=== PATIENT | female | born 1975 ===

== ENCOUNTER 2025-01-15 08:56 | Outpatient (AMB) | payer OTHER, SELFPAY ==
--- NOTE | 2025-01-15 09:01 | MHC.OFFVIS ---
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 The pain has been persistent and radiates to both legs posteriorly, accompanied by numbness and tingling sensations. The patient reports that all movements, including walking, sitting, prolonged driving, bending, and lifting, exacerbate the pain. The patient has a history of receiving treatment at [facility] and has undergone physical therapy in [place] a year ago without relief. She has also received L5-S1 epidural steroid injections at [facility], which provided minimal relief. The patient has been informed that surgery was recommended, but she is reluctant to pursue this option. An MRI conducted in October 2022 revealed degenerative changes in the lumbar spine, most pronounced at L5-S1, with a diffuse disc bulge and severe bilateral neuroforaminal narrowing. The MRI also showed facet arthropathy at the same level, but no significant canal stenosis. The patient reports worsening pain since 2022 and experiences weakness in her legs. The patient has a history of anxiety, for which she is seeing a Psychiatrist. She also suffers from migraines and is currently taking Mounjaro for diabetes and weight loss. - Onset: Chronic, persistent pain - Quality: Constant aching, throbbing, shooting, numbness, tingling, sharp, heavy, sore, and stabbing pain - Location: Lower back, radiating to both legs and buttocks - Exacerbating factors: Walking, sitting, prolonged driving, bending, lifting - Relieving factors: Percocet provides relief, but difficult to obtain - Interference: Affects all activities, including work and sleep - Affect: Pain significantly impacts mood and psychological wellbeing, contributing to anxiety. - Analgesia: Percocet provides relief, but is difficult to obtain; patient has tried muscle relaxants and gabapentin without success. - Adverse Effects: No specific adverse effects from pain medications were discussed. - Activities of Daily Living: Pain interferes with daily activities, including work and sleep. - Aberrant Drug Related Behaviors: No aberrant behaviors were discussed. Oswestry Low Back Pain Disability Score=38 [facility] Medical History (Updated 01/15/25 @ 09:38 by LISETH Davis) Palpitation Vitamin D deficiency Lumbar radiculitis Hypertension Excessive and frequent menstruation Chronic headache Chondromalacia of patella Chronic insomnia Chronic migraine without aura without status migrainosus, not intractable Diabetes type 2, controlled Hyperlipidemia Anxiety Surgical History (Updated 01/15/25 @ 09:21 by Manuela Greer) H/O tubal ligation Hx of tonsillectomy History of partial hysterectomy Hx of laparoscopic gastric banding History of ear surgery History of endometrial ablation Social History Alcohol intake: current Patient Tobacco Use Status: Never used Tobacco Review of Systems Const Details: - Musculoskeletal: Reports chronic low back pain radiating to legs, worsened by movement. - Neurological: Reports tingling in legs and weakness. - Psychiatric: Reports anxiety and elevated stress levels - Endocrine: Reports diabetes, managed with medication. - Sleep: Reports difficulty sleeping due to pain. All systems reviewed & are unremarkable except as noted in HPI and below Physical Exam Vital Signs: Last Vital Signs Pulse 92 01/15/25 09:08 BP 123/90 H 01/15/25 09:08 Pulse Ox 100 01/15/25 09:08 Oxygen Delivery Method Room Air 01/15/25 09:08 BMI result Body Mass Index 25.6 General: Appears afebrile. Alert and oriented. Mood and affect appropriate. Follows and participates in conversation appropriately. Respiratory effort is unlabored. No cough. Able to transition from sit to stand unassisted. Ambulates with bilaterally normal heel strike and toe off, reports RLE and back pain increase with heel/toe standing. General: Yes no CVA tenderness Back/Spine/Pelvis Other: Limited lumbar ROM due to pain. Lumbar flexion and extension reproduces moderate to severe pain. Normal gait, no limping. Demonstrates 5/5 strength of quadriceps bilaterally as well as flexion/dorsiflexion of bilateral feet against resistance. 2+ pedal pulses bilaterally. Straight leg rise with dorsiflexion positive bilaterally, R>L. +2 patellar and achilles reflexes bilaterally. Facet loading test positive bilaterally. Maggy sign, Jatin?s and Stinchfield tests are negative bilaterally. No groin pain with I/E hip rotations. Valsalva maneuver is positive. Back: no CVA tenderness Cervical Spine: cervical ROM normal, cervical muscular tenderness, pain with cervical ROM and No Cervical spine tenderness Thoracic/Lumbar Spine: thoracic and lumbar spine normal to inspection, No Thoracic/lumbar spine scar(s), Lasegue's sign positive bilateral and diffuse, pain with thoraco-lumbar ROM, paraspinal muscle tenderness, thoraco-lumbar ROM limited, No thoracic spinal tenderness and lumbar spinal tenderness (L4-S1) Sacroiliac joints: bilaterally tender to palpation Extrem General: Yes capillary refill normal, Yes no clubbing, cyanosis or edema and Yes no calf tenderness Results Reviewed Results Reviewed: Assessment & Plan Assessment & Plan (1) Lumbar degenerative disc disease: Code(s): M51.36 - Other intervertebral disc degeneration, lumbar region Category: Medical (2) Chronic low back pain with bilateral sciatica: Code(s): M54.41 - Lumbago with sciatica, right side; M54.42 - Lumbago with sciatica, left side; G89.29 - Other chronic pain Category: Medical (3) Chronic pain syndrome: Code(s): G89.4 - Chronic pain syndrome Category: Medical (4) Lumbar spondylosis: Code(s): M47.816 - Spondylosis without myelopathy or radiculopathy, lumbar region Category: Medical (5) Bilateral neuropathy of upper extremities: Code(s): G56.93 - Unspecified mononeuropathy of bilateral upper limbs Category: Medical Plan The plan includes updating the MRI to assess for neural integrity and compression and for any changes since the last imaging in 2022. Given ongoing pareshesia in both arms, we will proceed with EMG and NVC study to rule out carpal tunnel syndrome vs cervical radiculopathy. Discussed interventional pain management options including neuromodulation with ITDD pain pump and spinal cord stimulator, with the requirement of a psychological evaluation prior to any trial and permanent implantation. The patient is encouraged to consider these options and is provided with informational pamphlets to study further. Patient was informed that our office does not offer chronic opioid therapy at this time. All questions and concerns have been answered and patient agreed with the treatment plan. Follow up for MRI results and sooner as needed. Patient was informed and verbally consented to the use of an ambient scribe for clinic note documentation during this visit. Orders: Orders MR lumbar spine wo con Today G89.29 - Other chronic pain, G89.4 - Chronic pain syndrome, M47.816 - Spondylosis without myelopathy or radiculopathy, lumbar region, M51.36 - Other intervertebral disc degeneration, lumbar region, M54.41 - Lumbago with sciatica, right side, M54.42 - Lumbago with sciatica, left side NE electromyogram (EMG) Today G56.93 - Unspecified mononeuropathy of bilateral upper limbs NE nerve conduction velocity Today G56.93 - Unspecified mononeuropathy of bilateral upper limbs Coding Level of Care Code New Pt Level 4 (46037) Diagnoses Lumbar degenerative disc disease M51.36 Chronic low back pain with bilateral sciatica M54.41; M54.42; G89.29 Chronic pain syndrome G89.4 Lumbar spondylosis M47.816 Bilateral neuropathy of upper extremities G56.93
[2025-01-15 09:08] VITALS: BP 123/90; PULSE 92; O2SAT 100; BMI 25.6
--- OUTSIDE RECORDS SUMMARY | 2025-01-15 09:41 | XMS_ITS | Patient Health Record ---
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 Primary Care Provider Carla Law Unavailable [phone] Allergies Allergen (clinical drug ingredient) Drug/Non Drug Allergy documented on EMR Reaction Allergy Type Onset Date Status PENICILLIN Unknown Drug Allergy Active Reason For Referral No Information Medications Medication SIG (Take, Route, Frequency, Duration) Notes Start Date End Date Status Doxycycline Hyclate 100 MG 1 capsule Ora lly every 12 hrs; Duration: 7 days 10/17/2015 Active Topiramate 25 MG 1 tablet Orally Once a day Active Percocet 5-325 MG 1 tablet as needed O rally every 6 hrs PRN; Duration: 7 days 10/17/2015 Active Problems Problem Type SNOMED Code ICD Code Onset Dates Problem Status W/U Status Risk Notes Problem Excessive and frequent menstruation (518484477) Excessive or frequent menstruation (626.2) Active confirmed Major Problem Metrorrhagia (61965685) Metrorrhagia (626.6) Active confirmed Major Problem Surgical follow-up (007779811) Surgery follow-up examination (V67.0) Active confirmed Diag Plan Of Treatment Pending Test Test Name Order Date COMPLETE URINALYSIS 10/17/2015 Insurance Providers Payer Name Payer Address Payer Phone Subscriber Number Group Number Insured Name Patient Relationship to Insured Coverage Start Date Coverage End Date [facility] [address] [place] [address] [phone] [id number] ARIES TYSON Self - patient is the insured Medical (General) History Medical History History ICD Code Excessive and frequent menstruation with irregular cycle N92.1 Surgical History Surgery Date(Month/Year) TONSILLECTOMY EAR TUBES - as child BILATERAL EXCISION OF CYSTS, THIGH HSONO & EMB 2012 [facility] ABLATAION 2nd A[address] DR. HUFF 06/2015 Hospitalization History Reason Date(Month/Year) 2 Vaginal Deliveries See Surgical HX
--- OUTSIDE RECORDS SUMMARY | 2025-01-15 09:42 | XMS_ITS | Clinical Summary ---
Author Organization 175 [facility] Address [address] [place] [address] Phone Care Team Providers Care Edge Burnisher Name Role Phone Morteza Calix Primary Care Provider [phone] Allergies Active Allergy Reactions Criticality Noted Date Comments Hydrocodone-Acetaminop hen Headache 04/12/2019 Super bad migraines Penicillins Hives,GI intolerance,Unknown 01/26/2005 vomiting Other Reaction(s): vomiting,hives Medications aspirin-acetam inophen-caffei ne (EXCEDRIN MIGRAINE) 250-250-65 mg per tablet Take 1 tablet by mouth every 6 (six) hours if needed. Active FreeStyle Lite Meter monitoring kit USE DIRECTED ONCE 02/29/20 23 Active metFORMIN XR (GLUCOPHAGE-XR ) 500 mg 24 hr tablet Take 1 tablet (500 mg total) by mouth 1 (one) time each day. 90 tablet 3 04/04/19 25 Active blood sugar diagnostic (FreeStyle Lite Strips) test strip Use as instructed 100 each 3 04/04/19 25 Active amLODIPine (NORVASC) 10 mg tablet Take 1 tablet (10 mg total) by mouth 1 (one) time each day. 90 tablet 3 04/04/19 25 Active atorvastatin (LIPITOR) 20 mg tablet Take 1 tablet (20 mg total) by mouth 1 (one) time each day. 90 tablet 3 04/04/19 25 Active hydroCHLOROthi azide (HYDRODIURIL) 25 mg tablet Take 1 tablet (25 mg total) by mouth 1 (one) time each day. 90 tablet 3 04/04/19 25 Active losartan (COZAAR) 25 mg tablet Take 1 tablet (25 mg total) by mouth 1 (one) time each day. 90 tablet 3 04/04/19 25 Active metoprolol succinate (TOPROL-XL) 50 mg 24 hr tablet Take 1 tablet (50 mg total) by mouth 1 (one) time each day. 90 tablet 3 04/04/19 25 Active topiramate (TOPAMAX) 50 mg tablet Take 1 tablet (50 mg total) by mouth 2 (two) times a day. 180 tablet 3 04/04/19 25 Active FreeStyle Lancets 28 gauge lancets USE 1 LANCET DAILY 02/28/20 24 Active Nystop 100,000 unit/gram powder APPLY TO AREA OF RASH TWICE DAILY 06/16/19 24 Active gabapentin (NEURONTIN) 100 mg capsule Take 1 capsule (100 mg total) by mouth 3 (three) times a day. 270 capsule 1 06/22/19 25 Active rizatriptan (MAXALT) 10 mg tablet Take 1 Tablet by mouth as needed for Migraine. May repeat in 2 hours if needed 9 tablet 11 07/06/19 25 Active gabapentin (NEURONTIN) 800 mg tablet TAKE 1 TABLET BY MOUTH THREE TIMES A DAY 270 tablet 1 08/08/19 25 Active zolpidem (AMBIEN) 5 mg tablet TAKE 1 TABLET BY MOUTH AT BEDTIME NEEDED FOR SLEEP. MAX DAILY AMOUNT: 5 MG 28 tablet 12/22/19 25 Active tirzepatide (Mounjaro) 12.5 mg/0.5 mL injectionIndic ations:Over weight Inject 0.5 mL (12.5 mg total) under the skin every 7 (seven) days. 2 mL 3 01/09/20 25 026 Active cyclobenzaprin e (FLEXERIL) 10 mg tablet Take 1 tablet (10 mg total) by mouth 3 (three) times a day if needed for muscle spasms. 90 tablet 5 06/29/19 25 025 Discontinued(Th erapy completed) tirzepatide (Mounjaro) 12.5 mg/0.5 mL injectionIndic ations:Over weight Inject 0.5 mL (12.5 mg total) under the skin every 7 (seven) days. 2 mL 3 10/31/19 25 025 Discontinued(Re order) zolpidem (AMBIEN) 5 mg tablet Take 1 tablet (5 mg total) by mouth at bedtime as needed for sleep. Max Daily Amount: 5 mg 28 tablet 11/14/19 25 025 Discontinued oxyCODONE-acet aminophen (Percocet) 10-325 mg per tablet Take 1 tablet by mouth every 8 (eight) hours if needed for severe pain for up to 28 days. 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 Overview (02/07/2024): + swab 03/2017 Osteoarthritis of cervical spine 03/23/2017 Chronic migraine w/o aura w/ o status migrainosus, not intractable 03/23/2017 Chronic headaches 06/21/2013 Vitamin D deficiency 05/31/2012 Chondromalacia of patella 11/09/2006 Encounters Date Type Department Care Team Description 01/08/2025 1:45 PM EDT Office Visit Bariatric Surgery [address] [place] [address] Erasmo Woodard MD New onset type 2 diabetes mellitus (CMS/HCC V24, CMS/HCC V28) (Primary Dx); Over weight 01/04/2025 1:15 PM EDT Office Visit Adult Medicine [address] [phone] Cara Webb, PA Primary hypertension (Primary Dx); Hyperlipidemia, unspecified hyperlipidemia type; Type 2 diabetes mellitus without complication, without long-term current use of insulin ([facility] V24, [facility] V28); Chronic migraine without aura without status migrainosus, not intractable; Chronic bilateral low back pain with bilateral sciatica; Primary insomnia 01/04/2025 Telephone Adult Medicine [address] [phone] Morteza Calix PA 12/20/2024 Telephone Adult Medicine [address] [phone] Cara Webb PA 11/13/2024 Telephone Adult Medicine [address] [phone] Kemi Negron MA from Last 3 Months Immunizations Immunization Administration Dates Next Due H1N1 Inj Preservative Free 03/28/2009 Influenza Quadravalent, MDCK , 0.5ml, preservative free (Flucelvax) 6mo and older 01/12/2022 Influenza Quadrivalent, 0.5m l, preservative free (Fluarix; FluLaval; Fluzone) ages 6mo and older (Afluria) 3yo and older 01/19/2023 Influenza trivalent, 0.5mL, preservative free (Fluarix; FluLaval; Fluzone) ages 6mo and older (Afluria) 3 years and older 01/06/2024,12/10/2014,03/28/2009 Influenza trivalent, with pr eservative (Fluzone; Afluria) 6mo and older 12/30/2016 Influenza, Unspecified 12/13/2022 Pneumococcal conjugate 20 va lent (Prevnar 20, PCV 20) 2mo and older 07/05/2024 Pneumococcal polysaccharide 23 valent (Pneumovax 23) 2yo and older 12/30/2016 Td Tetanus diptheria (Tdvax) 7yo and older 05/21 Td, Unspecified 05/22/2003 Tdap Tetanus diptheria acell ular pertussis (Boostrix; Adacel) 7yo and older 10/26/2019,06/21/2013 Surgical History Surgery Date Site/Laterality Comments TUBAL LIGATION PROCEDURE: HISTORICAL TUBAL LIGATION TONSILLECTOMY PROCEDURE: HISTORICAL TONSILLECTOMY OTHER SURGICAL HISTORY PROCEDURE: HISTORICAL EAR SURGERY; COMMENT: ear tubes OTHER SURGICAL HISTORY PROCEDURE: ---- OTHER ----; COMMENT: lap band 2007 aprox OTHER SURGICAL HISTORY PROCEDURE: HISTORICAL UNSPECIFIED SURGERY; COMMENT: cyst-right thigh removal ENDOMETRIAL ABLATION 2012 PROCEDURE: ND ENDOMETRIAL ABLTJ THERMAL W/O HYSTEROSCOPIC GUID PARTIAL HYSTERECTOMY PROCEDURE: ND SUPRACERVICAL ABDL HYSTER W/WO RMVL TUBE OVARY Medical History Medical History Date Comments Morbid obesity (CMS/[facility] V24, CMS/[facility] V28) 007 DX:Morbid obesity ([facility]) Chondromalacia of patella 11/09/2006 DX:Cho ndromalacia of patella Migraines DX:Migraines Hyperlipidemia Hypertension Family History Medical History Relation Name Comments Coronary artery disease Maternal Grandfather Heart attack Mother htn, Melanoma Mother's side 1 aunt in her 30's Coronary artery disease Mother's side 2 a unt, Coronary artery disease Other 1st cousin Coronary artery disease Paternal Grandfather [place] Other: htn Sister Breast cancer Neg Hx Colon cancer Neg Hx Ovarian cancer Neg Hx Relation Name Status Comments Father Alive htn Maternal Grandfather Mother Alive gerd, htn, [place], sleep apnea Mother's side 1 Mother's side 2 Other Paternal Grandfather Sister Social History Tobacco Use Types Packs/Day Years Used Date Smoking Tobacco: Never Smokeless Tobacco: Never Tobacco Cessation:Counseling Given: Not Answered Alcohol Use Standard Drinks/Week Comments Yes 0 (1 standard drink = 0.6 oz pur e alcohol) Housing Instability Answer Date Recorde d Are you worried that in the next 2 months you may not have stable housing? No 10/04/2024 Food Access & Nutrition Answer Date Rec orded Do you have access to a vari ety of food including fruits and vegetables? Yes 10/04/2024 Access to Healthcare Answer Date Record ed Within the last 3 months, ho w many times did you visit the emergency department for your medical care? 0 10/04/2024 Health Literacy Answer Date Recorded How often do you need to hav e someone help you when you read instructions, pamphlets, or other written material from your doctor or pharmacy? Never 10/04/2024 Caregiver: How often do you need to have someone help you when you read instructions, pamphlets, or other written material from your doctor or pharmacy? Not on file 10/04/2024 Financial Risk Answer Date Recorded How hard is it for you to pa y for the very basics like food, housing, medical care, and air conditioning / heating? Not very hard 10/04/2024 Transportation Answer Date Recorded Has the lack of transportati on kept you from meetings, work, or from getting things needed for daily living? No Has the lack of transportati on kept you from medical appointments or from getting medications? No 10/04/2024 Social Isolation Answer Date Recorded How often do you feel lonely or isolated from th ose around you? Never 10/04/2024 Food Risk Answer Date Recorded Within the past 12 months we worried whether our food would run out before we got money to buy more. Never true 10/04/2024 Within the past 12 months th e food we bought just didn't last and we didn't have money to get more. Never true 10/04/2024 Dependent Care Answer Date Recorded Do you need help finding or paying for care for your loved ones. For example, early childhood education worker or elderly care for an older adult? No 10/04/2024 Education Answer Date Recorded Do you think completing more education or training, like finishing a GED, going to college, or learning a trade, would be helpful for you? No 10/04/2024 Employment and Income Answer Date Recor ded During the last four weeks, have you been actively looking for work? No 10/04/2024 Living Situation Answer Date Recorded What is your living situation? Unrecognized valu e 10/04/2024 Interpersonal Safety Answer Date Record ed Physical Abuse Unrecognized value 06/01/2024 Verbal Abuse Unrecognized value 06/01/2024 Comments No Sex and Gender Information Value Date Recorded Sex Assigned at Female 10/05/2023 8:36 AM EDT Legal Sex Female 2:08 AM EST Gender Identity Female 10/05/2023 8:36 AM EDT Sexual Orientation Straight 10/05/2023 8: 36 AM EDT Obstetrics History Last Filed Vital Signs Vital Sign Reading Time Taken Comments Blood Pressure 136/85 01/08/2025 2:12 PM EDT Pulse 90 01/08/2025 2:12 PM EDT Temperature 36.6 C (97.8 F) 01/08/2025 2:12 PM EDT Respiratory Rate 16 01/04/2025 1:17 PM EDT Oxygen Saturation 99% 01/04/2025 1:17 PM EDT Inhaled Oxygen Concentration - - Weight 61.2 kg (135 lb) 01/08/2025 2:12 PM EDT Height 152.4 cm (5') 01/08/2025 2:12 PM EDT Body Mass Index 26.37 01/08/2025 2:12 PM EDT Plan of Treatment Upcoming Encounters Date Type Department Care Team (Late st Contact Info) Description 04/09/2025 1:15 PM EST Office Visit Adult Medicine [facility] [address] [place] [phone] Cara Webb PA [address] [place] [address] 07/09/2025 2:15 PM EDT Office Visit Bariatric Surgery - [address] [place] [address] Erasmo Woodard MD [address] [place] [phone] Health Maintenance Due Date Last Done Comments Breast Cancer Screening 1975 Hepatitis B Vaccines (1 of 3 - 19+ 3-dose series) 1996 Cervical Cancer Screening: Pap Smear 11/16/2014 11/17/2011, 11/17/2011 COVID-19 Vaccine ( season) 2024 01/19/2023, 07/29/2020, 07/08/2020 Diabetes: Annual Retina Eye Exam 03/29/2025 03/29/2024 Diabetes: Blood Sugar Control Test (HGBA1C) 04/06/2025 10/04/2024, 05/14/2024, 09/13/2023, Additional history exists Diabetes: Annual Urine Albumin-Creatinine Ratio (uACR) 05/14/2025 05/14/2024, 04/14/2023 Diabetes: Annual GFR (Glomerular Filtration Rate) 05/14/2025 05/14/2024, 09/13/2023, 09/13/2023 Hypertension/CHF/CAD Annual BMP Blood Test 05/14/2025 05/14/2024, 09/13/2023, 09/13/2023 Influenza Vaccine (#1) 2025 , 01/19/2023, 12/13/2022, Additional history exists Postponed from 11/12/2024 (Patient Refused) Diabetes: Annual Foot Exam 10/04/2025 10/04/2024, Social Influencers of Health Screening 10/04/2025 10/04/2024 Cholesterol Screening (Lipid Panel) 05/14/2029 05/14/2024, 04/14/2023 DTaP,Tdap,and Td Vaccines (5 - Td or Tdap) 10/25/2029 10/26/2019, 06/21/2013, 05/22/2003, Additional history exists Colorectal Cancer Screening: Colonoscopy 06/01/2034 06/01/2024 RSV Immunization Adult Patients (1 - 1-dose 75+ series) 2052 HIV Screening Completed 03/25/2017 Hepatitis C Screening Completed 03/25/2017 Pneumococcal Vaccine: Pediatrics (0 to 5 Years) and At-Risk Patients (6 to 49 Years) Completed 07/05/2024, 12/30/2016 Depression Screening Completed 10/04/2024 HIB Vaccines Aged Out No longer eligi ble based on patient's age to complete this topic HPV Vaccines Aged Out No longer eligi ble based on patient's age to complete this topic Hepatitis A Vaccines Aged Out No long er eligible based on patient's age to complete this topic IPV Vaccines Aged Out No longer eligi ble based on patient's age to complete this topic MMR Vaccines Aged Out No longer eligi ble based on patient's age to complete this topic Meningococcal ACWY Vaccine Aged Out N o longer eligible based on patient's age to complete this topic Meningococcal B Vaccine Aged Out No l onger eligible based on patient's age to complete this topic RSV Immunization Patients Under 20 months Aged Out No longer eligible based on patient's age to complete this topic Varicella Vaccines Aged Out No longer eligible based on patient's age to complete this topic Procedures Procedure Name Priority Date/Time Associated Diagnosis Comments HEMOGLOBIN A1C Routine 10/04/2024 4:28 PM EDT Type 2 diabetes mellitus without complication, without long-term current use of insulin (CMS/HCC V24, CMS/HCC V28) COLONOSCOPY Routine 06/01/2024 8:56 AM EDT Colon cancer screening MICROALBUMIN CREATININE URINE RATIO Routine 05/14/2024 2:20 PM EST Screening for malignant neoplasm of colon New onset type 2 diabetes mellitus (CMS/HCC V24, CMS/HCC V28) Hyperlipidemia, unspecified hyperlipidemia type Primary hypertension Obesity (BMI 35.0-39.9 without comorbidity) Vitamin D deficiency Anxiety COMPREHENSIVE METABOLIC PANEL Routine 05/14/2024 2:20 PM EST Screening for malignant neoplasm of colon New onset type 2 diabetes mellitus (CMS/HCC V24, CMS/HCC V28) Hyperlipidemia, unspecified hyperlipidemia type Primary hypertension Obesity (BMI 35.0-39.9 without comorbidity) Vitamin D deficiency Anxiety LIPID PANEL WITH REFLEX TO DIRECT LDL Routine 05/14/2024 2:20 PM EST Screening for malignant neoplasm of colon New onset type 2 diabetes mellitus (CMS/HCC V24, CMS/HCC V28) Hyperlipidemia, unspecified hyperlipidemia type Primary hypertension Obesity (BMI 35.0-39.9 without comorbidity) Vitamin D deficiency Anxiety DIABETES FOOT EXAM Routine 08/31/2023 HEPATITIS C SCREENING Routine 03/25/2017 HIV SCREENING Routine 03/25/2017 HPV Routine 11/17/2011 from Last 3 Months or Most Recently Relevant to Health Maintenance Results * Hemoglobin A1c (10/04/2024 4:28 PM EDT) Hemoglobin A1C 5.5 <6.5 % LAB CHEMISTRY METHOD 10/04/2024 10:12 PM EDT [facility] Mean Bld Glu Estim. 111 mg/dL LAB CHEMISTRY METHOD 10/04/2024 10:12 PM EDT [facility] Blood Venous blood specimen / Unknown Venipuncture / Unknown 10/04/2024 4:28 PM EDT 10/04/2024 4:28 PM EDT us Cara Webb BRYON LAB BLOOD ORDERABLES Final Resul t [facility] [address] [place] [address], * COLONOSCOPY Anesthesia - MAC; [facility] ENDOSCOPY (06/01/2024 8:56 AM EDT) Anatomical Region Laterality Modality Other 06/01/2024 8:28 AM EDT Impressions 06/01/2024 8:56 AM EDT - The entire examined colon is normal on direct and retroflexion views. - No specimens collected. Recommendation: - Patient has a contact number available for emergencies. The signs and symptoms of potential delayed complications were discussed with the patient. Return to normal activities tomorrow. Written discharge instructions were provided to the patient. - Resume previous diet. - Continue present medications. - Repeat colonoscopy in 10 years for screening purposes. Narrative 06/01/2024 8:56 AM EDT [facility] GI Patient Name: Jailyn Ann Procedure Date: 06/01/2024 8:28 AM Date of : 1975 Age: 48 Room: ROOM 14 Gender: Female Note Status: Finalized Attending MD: Chema Eason MD, Procedure Date No Time: 06/01/2024 Procedure: Colonoscopy Indications: Screening for colorectal malignant neoplasm Providers: Chema Eason MD Referring MD: Chema Eason MD Medicines: Monitored Anesthesia Care Complications: No immediate complications. Estimated Blood Loss: Estimated blood loss: none. Procedure: After I obtained informed consent, the scope was passed under direct vision. Throughout the procedure, the patient's blood pressure, pulse, and oxygen saturations were monitored continuously. The Colonoscope was introduced through the anus and advanced to the cecum, identified by appendiceal orifice and ileocecal valve. The colonoscopy was performed without difficulty. The patient tolerated the procedure well. The quality of the bowel preparation was good. Findings: The entire examined colon appeared normal on direct and retroflexion views. Procedure Code(s): --- Professional --- G0121, Colorectal cancer screening; colonoscopy on individual not meeting criteria for high risk Diagnosis Code(s): --- Professional --- Z12.11, Encounter for screening for malignant neoplasm of colon CPT copyright 2020 [employer]. All rights reserved. The codes documented in this report are preliminary and upon pre coder review may be revised to meet current compliance requirements. MD Chema Ricci MD 06/01/2024 8:56:22 AM This report has been signed electronically.Chema Eason MD Number of Addenda: 0 Note Initiated On: 06/01/2024 8:28 AM Scope In: Scope Out: Endoscopy Department at [facility] - [address] [place] [phone] Procedure Note Chema Eason MD - 06/01/2024 [facility] GI Patient Name: Jailyn Ann Procedure Date: 06/01/2024 8:28 AM Date of : 1975 Age: 48 Room: ROOM 14 Gender: Female Note Status: Finalized Attending MD: Chema Eason MD, Procedure Date No Time: 06/01/2024 Procedure: Colonoscopy Indications: Screening for colorectal malignant neoplasm Providers: Chema Eason MD Referring MD: Chema Eason MD Medicines: Monitored Anesthesia Care Complications: No immediate complications. Estimated Blood Loss: Estimated blood loss: none. Procedure: After I obtained informed consent, the scope was passed under direct vision. Throughout theprocedure, the patient's blood pressure, pulse, and oxygen saturations were monitored continuously. The Colonoscope was introduced through the anus and advanced to the cecum, identified by appendiceal orifice and ileocecal valve. The colonoscopy was performed without difficulty. The patient tolerated the procedure well. The quality of the bowel preparation was good. Findings: The entire examined colon appeared normal on direct and retroflexion views. Procedure Code(s): --- Professional --- G0121, Colorectal cancer screening; colonoscopy on individual not meeting criteria for high risk Diagnosis Code(s): --- Professional --- Z12.11, Encounter for screening for malignantneoplasm of colon CPT copyright 2020 [employer]. All rights reserved. The codes documented in this report are preliminary and upon pre coder reviewmay be revised to meet current compliance requirements. MD Chema Ricci MD 06/01/2024 8:56:22 AM This report has been signed electronically.Chema Eason MD Number of Addenda: 0 Note Initiated On: 06/01/2024 8:28 AM Scope In: Scope Out: Endoscopy Department at [facility] - [address] [place] [phone] IMPRESSION: - The entire examined colon is normal on direct and retroflexion views. - No specimens collected. Recommendation: - Patient has a contact number available for emergencies. The signs and symptoms of potential delayed complications were discussed with thepatient. Return to normal activities tomorrow. Written discharge instructions were provided to thepatient. - Resume previous diet. - Continue present medications. - Repeat colonoscopy in 10 years for screening purposes. us Chema Eason MD GI~PROCEDURE ORDERABLES Final R esult * Lipid panel with reflex to direct LDL (05/14/2024 2:20 PM EST) Cholesterol 142 0 - 200 mg/dL LAB CHEMISTRY METHOD 05/14/2024 4:26 PM [facility] Triglycerides 138 0 - 150 mg/dL LAB CHEMISTRY METHOD 05/14/2024 4:26 PM EST [facility] HDL 47 >=40 mg/dL LAB CHEMISTRY METHOD 05/14/2024 4:26 PM [facility] LDL Calculated 67 0 - 100 mg/dL LAB CHEMISTRY METHOD 05/14/2024 4:26 PM [facility] VLDL Cholesterol Josiah 27.6 mg/dL LAB CHEMISTRY METHOD 05/14/2024 4:26 PM [facility] Non HDL Chol. (LDL+VLDL) 95 <145 mg/dL LAB CHEMISTRY METHOD 05/14/2024 4:26 PM EST [facility] Chol/HDL Ratio 3.0 0.0 - 4.4 LAB CHEMISTRY METHOD 05/14/2024 4:26 PM EST [facility] Blood Venous blood specimen / Unknown Venipuncture / Unknown 05/14/2024 2:20 PM EST 05/14/2024 2:20 PM EST Morteza SLATER LAB BLOOD ORDERABLES Agatha l Result [facility] [address] [place] [address], [place] [phone] * Microalbumin creatinine urine ratio (05/14/2024 2:20 PM EST) Creatinine, Urine 148.0 mg/dL LAB CHEMISTRY METHOD 05/14/2024 4:32 PM EST [facility] Microalb, Ur 9.1 0.0 - 29.0 mg/L LAB CHEMISTRY METHOD 05/14/2024 4:32 PM EST [facility] Microalb/Creat Ratio 6 <30 mg/g creat LAB CHEMISTRY METHOD 05/14/2024 4:32 PM EST [facility] Urine Urine specimen obtained by clean catch procedure / Unknown Non-blood Collection / Unknown 05/14/2024 2:20 PM EST 05/14/2024 2:20 PM EST Morteza SLATER LAB URINE ORDERABLES Agatha l Result [facility] [address] [place] [address], [place] [phone] * Comprehensive metabolic panel (05/14/2024 2:20 PM EST) Sodium 142 133 - 145 mmol/L LAB CHEMISTRY METHOD 05/14/2024 4:26 PM EST [facility] Potassium 4.5 3.5 - 5.5 mmol/L LAB CHEMISTRY METHOD 05/14/2024 4:26 PM [facility] Chloride 109 96 - 110 mmol/L LAB CHEMISTRY METHOD 05/14/2024 4:26 PM [facility] CO2 30 21 - 32 mmol/L LAB CHEMISTRY METHOD 05/14/2024 4:26 PM [facility] Anion Gap 3 3 - 11 LAB CHEMISTRY METHOD 05/14/2024 4:26 PM [facility] Glucose 73 70 - 100 mg/dL LAB CHEMISTRY METHOD 05/14/2024 4:26 PM [facility] BUN 20 5 - 25 mg/dL LAB CHEMISTRY METHOD 05/14/2024 4:26 PM [facility] Creatinine 0.83 0.50 - 1.10 mg/dL LAB CHEMISTRY METHOD 05/14/2024 4:26 PM [facility] eGFR 88 >=60 mL/min/1. 73m2 LAB CHEMISTRY METHOD 05/14/2024 4:26 PM [facility] Comment:Calculation based on the Chronic Kidney Disease Epidemiology Collaboration (CKD-EPI) equation refit without adjustment for race. BUN/Creatinine Ratio 24.1 LAB CHEMISTRY METHOD 05/14/2024 4:26 PM [facility] Calcium 9.3 8.5 - 10.5 mg/dL LAB CHEMISTRY METHOD 05/14/2024 4:26 PM [facility] AST (SGOT) 21 10 - 42 unit/L LAB CHEMISTRY METHOD 05/14/2024 4:26 PM [facility] ALT (SGPT) 29 10 - 60 unit/L LAB CHEMISTRY METHOD 05/14/2024 4:26 PM [facility] Alkaline Phosphatase 45 42 - 121 unit/L LAB CHEMISTRY METHOD 05/14/2024 4:26 PM [facility] Total Protein 6.4 6.0 - 8.0 g/dL LAB CHEMISTRY METHOD 05/14/2024 4:26 PM EST [facility] Albumin 3.5 3.2 - 5.0 g/dL LAB CHEMISTRY METHOD 05/14/2024 4:26 PM EST [facility] Total Bilirubin 0.5 0.0 - 1.4 mg/dL LAB CHEMISTRY METHOD 05/14/2024 4:26 PM EST [facility] Blood Venous blood specimen / Unknown Venipuncture / Unknown 05/14/2024 2:20 PM EST 05/14/2024 2:20 PM EST Morteza SLATER LAB BLOOD ORDERABLES Agatha l Result [facility] [address] [place] [address], * Diabetes Foot Exam (08/31/2023) [facility] Diabetes: Annual Foot Exam abstracted [facility] Provider HEALTH MAINTENANCE Final Result * HIV Screening (03/25/2017) [facility] HIV Screening abstracted [facility] Provider HEALTH MAINTENANCE Final Result * Hepatitis C Screening (03/25/2017) [facility] Hepatitis C Screening abstracted [facility] Provider HEALTH MAINTENANCE Final Result * Cervical Cancer Screening: HPV (11/17/2011) [facility] Cervical Cancer Screening: HPV no interpretation , abstracted Historical Provider HEALTH MAINTENANCE Final Result from Last 3 Months or Most Recently Relevant to Health Maintenance Insurance [facility] Care Teams Edge Burnisher Relationship Specialty Start Date End Date Morteza Calix PA [address] [place] [id number] PCP - General Internal Medicine 03/26/24
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
== END 2025-01-15 09:47 | disposition home or self-care (01) ==
LOC: HO.PMC 08:56
PROVIDERS: PCP Physician Assistant Medical; Visit Provider Nurse Practitioner Family
DX: M51.369 Other intervertebral disc degeneration, lumbar region without mention of lumbar back pain or lower extremity pain (principal); M54.41 Lumbago with sciatica, right side; M54.42 Lumbago with sciatica, left side; G89.29 Other chronic pain; G89.4 Chronic pain syndrome; M47.816 Spondylosis without myelopathy or radiculopathy, lumbar region; G56.93 Unspecified mononeuropathy of bilateral upper limbs
CPT/HCPCS: 99204

== ENCOUNTER 2025-02-03 13:55 | Outpatient (REF) | payer OTHER, SELFPAY ==
--- NOTE | ~2025-02-03 | MR_ITS ---
CLINICAL HISTORY: M51.36 - Other intervertebral disc degeneration, lumbar region MR lumbar spine without gadolinium Comparison: None Findings: No plain films are available for comparison. Thus, for numbering purposes, 5 lumbar type vertebral bodies will be presumed. This should be confirmed with plain films prior to any lumbar spinal intervention. 2 mm of retrolisthesis of L2 on L3 and L3 on L4. 5 mm of retrolisthesis of L5 on S1. No acute fracture or pathologic bone lesion. Moderate reactive signal within the endplates adjacent to the L5-S1 intervertebral disc. Mild reactive signal within the remaining lumbar and lower thoracic endplates. Cauda equina and conus medullaris within normal limits. Paraspinous musculature intact. No paraspinous masses. L1-L2: No significant canal nor foraminal stenosis. L2-L3:Mild diffuse disc bulge. Mild facet and ligamentum flavum hypertrophy. Mild epidural lipomatosis. Mild canal stenosis. Mild bilateral foraminal stenosis. L3-L4:Mild disc desiccation and diffuse disc bulge. Mild facet and ligamentum flavum hypertrophy. Mild canal stenosis. Mild bilateral foraminal stenosis. L4-L5: Mild disc desiccation and diffuse disc bulge. Mild facet and ligamentum flavum hypertrophy. Mild canal stenosis. Moderate bilateral foraminal stenosis. L5-S1:Severe disc height loss and desiccation. Mild diffuse disc bulge. Mild bilateral facet hypertrophy. Mild canal stenosis. Moderate to severe right and moderate left foraminal stenosis. Mild right L5 nerve root compression. IMPRESSION: 1. Multilevel degenerative disc and facet disease, as well as ligamentum flavum hypertrophy. 2. Mild multilevel canal stenoses. 3. Multilevel foraminal stenoses, worst at L5-S1 where there is associated intraforaminal nerve root compression. Correlation with clinical symptoms is recommended to assess relevance of this finding. 4. Plain film correlation is recommended for numbering purposes prior to any lumbar spinal intervention. This document has been electronically signed by: Alexy Barros MD on 02/03/2025 15:16:19
--- OUTSIDE RECORDS SUMMARY | 2025-02-03 14:03 | XMS_ITS | Data Portability ---
Author Organization [facility] [address] Address [address] [place] [address] Assessment No assessment recorded. Plan of Treatment Reminders Order Date Submit Date Provider Last Modified By Organization Details Last Modified Time Details Appointments None recorded. Lab None recorded. Referral None recorded. Procedures None recorded. Surgeries None recorded. Imaging None recorded. Medication Orders azithromyci n 250 mg tablet 2022 023 [facility] #[id number], [address], [place], [phone], 3 16:26:09 ibuprofen 800 mg tablet 2022 023 [facility] [employer] #[id number], [address], [place], [phone], 16:26:08 Patient TargetsNo targets recorded. Patient Instructions Encounter Date Encounter Id Patient Instructions Last Modified By Organization Details Last Modified Time 12/10/2022 [id number] Acute Sinusitis: Care Instructions Not available 12/10/2022 16:26:00 Acute Sinusitis: Care Instructions Not available 12/10/2022 16:26:00 Reason for Referral None Reported. Problems Name Problem SNOMED Code Status Onset Date Resolution Date Notes Provider Name and Address Organization Details Recorded Time Migraine 97476312 Active 2022 [facility] 3 16:10:00 Hypertensive disorder 52601370 Active 2022 [facility] 16:10:15 Chronic back pain 055566093 Active 2022 KATHY sepulveda, PA - [facility] 3 16:10:25 Problem Notes None recorded. Procedures Surgical History Date Name Laterality Status Provider Name and Address Organization Details Recorded Time ligation of fallopian tube completed KATHY SUMMERS PA - [facility] 12/10/2022 16:11:03 Hernia Repair completed KATHY SUMMERS PA - [facility] 12/10/2022 16:11:08 hysterectomy completed KATHY SUMMERS PA - [facility] 12/10/2022 16:11:22 Imaging Results None recorded. Procedure Notes None recorded. Medical Equipment None Reported. Allergies Allergen ID Allergen Name Allergen Category Reaction Reaction Severity Criticality Documentation Date Start Date Code Code System Note Provider Name and Address Organization Details Recorded Time 625154 Product containin g penicilli n (product) medicatio n hives vomiting Not available mild low 12/10/2022 60770 8001 SNOMED KATHY sepulveda, PA - [facility] 16:08:41 Medications Name Sig Start Date Stop Date Status Note LastModified by Organization Details LastModified Time celecoxib 200 mg capsule TAKE 1 CAPSULE BY MOUTH TWICE A DAY active Not Available Not Available No t Available methocarbam ol 500 mg tablet TAKE 1 TABLET BY MOUTH 3 TIMES A DAY CAN CAUSE SEDATION IN COMBO WITH GABAPENTI N 12/10 completed Not Available Not Available Not Available azithromyci n 250 mg tablet TAKE 2 TABLETS (500 MG) BY ORAL ROUTE ONCE DAILY FOR 1 DAY THEN 1 TABLET (250 MG) BY ORAL ROUTE ONCE DAILY FOR 4 DAYS 2022 active Not Available Not Available Not Avai lable ibuprofen 800 mg tablet Take 1 tablet 3 times a day by oral route as needed for 5 days. 2022 active Not Available Not Available Not Avai lable tizanidine 4 mg tablet TAKE 1 TABLET BY MOUTH EVERY 8 HOURS NEEDED FOR MUSCLE SPASM active Not Available Not Available No t Available metoprolol succinate ER 50 mg tablet,exte nded release 24 hr TAKE 1 TABLET BY MOUTH EVERY DAY active Not Available Not Available No t Available rizatriptan 10 mg tablet TAKE 1 TABLET BY MOUTH NEEDED FOR MIGRAINE. MAY REPEAT IN 2 HOURS IF NEEDED active Not Available Not Available No t Available topiramate 25 mg tablet TAKE 1 TABLET BY MOUTH TWICE A DAY active Not Available Not Available No t Available oxycodone-a cetaminophe n 5 mg-325 mg tablet TAKE 1 TABLET BY MOUTH EVERY 6 HOURS NEEDED FOR PAIN active Not Available Not Available No t Available gabapentin 800 mg tablet TAKE 1 TABLET BY MOUTH THREE TIMES DAILY. TO COMPLETE 900 MG 3 TIMES DAILY active Not Available Not Available No t Available amlodipine 10 mg tablet TAKE 1 TABLET BY MOUTH EVERY DAY active Not Available Not Available No t Available hydrochloro thiazide 25 mg tablet TAKE 1 TABLET BY MOUTH EVERY DAY active Not Available Not Available No t Available diclofenac sodium 50 mg tablet,tyra yed release 12/10 completed Not Available Not Available Not Available gabapentin 100 mg capsule TAKE 1 CAPSULE BY MOUTH THREE TIMES DAILY. TO COMPLETE 900 MG 3 TIMES DAILY active Not Available Not Available No t Available metoprolol succinate ER 25 mg tablet,exte nded release 24 hr TAKE 1 TABLET BY MOUTH EVERY DAY active Not Available Not Available No t Available nabumetone 500 mg tablet TAKE 2 TABLETS BY MOUTH EVERY DAY active Not Available Not Available No t Available oxycodone 5 mg tablet TAKE 1 TABLET BY MOUTH EVERY 6 HOURS NEEDED FOR SEVERE PAIN 12/10 completed Not Available Not Available Not Available escitalopra m 10 mg tablet TAKE 1 TABLET BY MOUTH EVERY DAY 12/10 completed Not Available Not Available Not Available escitalopra m 20 mg tablet TAKE 1 TABLET BY MOUTH EVERY DAY active Not Available Not Available No t Available topiramate 50 mg tablet TAKE 1 TABLET BY MOUTH TWICE A DAY active Not Available Not Available No t Available Vitals Date Recorded Body height Body mass index (BMI) Body weight Pain severity - 0-10 verbal numeric rating [Score] - Reported Oxygen saturation Heart rate Body temperature Systolic And Diastolic Provider Name and Address Organization Details Last Updated DateTime 3 152.4 cm 38.3 kg/m2 33926.1 g 10 100 % 87 /min 98.5 [degF] 130/85 mm[Hg] KATHY SUMMERS PA - [facility] 3 16:13:25 Social History Question Answer Notes LastModified by Organizat ion Details LastModified Time Tobacco Smoking Status Never Smoker BRYON Alvarez - [facility] 12/10/2022 16:10:42 How Many Years Have You Consumed Alcohol? -1 Information not available 12/10/2022 Have You Recently Traveled Abroad? No Information not available 12/10/2022 Are You Currently In School? No Information not available 12/10/2022 Sex: Unknown Functional Status Question Answer Note LastModified by Organizat ion Details LastModified Time Do you use any illicit or recreational drugs? No Information not available 12/10/2022 What is your level of alcohol consumption? Occasional Information not available 12/10/2022 Are you currently employed? Yes Information not available 12/10/2022 Mental Status None recorded. Family History Nothing Reported. Medical History No medical history recorded. Gynecological History Statement/Question Response Is there any chance of ? No Obstetrics History GPAL:G 0 P 0 0 0 0 Past Encounters Encounter ID Performer Location Encounter Start Date Encounter Closed Date Diagnosis/Indication Diagnosis SNOMED-CT Code Diagnosis ICD10 Code Diagnosis IMO Codes Diagnosis Note [id number] [place] [address] 11/30/2019 15:50:32 11/30/2019 16:58:06 [id number] [place] [address] [place] [address] 12/10/2022 15:37:25 12/10/2022 16:27:19 Acute sinusitis 00407130 J01.90 - Use the medication s prescribed .- Decongesta nts if tolerated. - Recommend recheck if fever develops or no improvemen t in 5-7 days.- Use saline nasal spray or neti-pot flushes once to twice a day to loosen mucus in sinuses.-. Use a cool mist humidifier in the room that you sleep to add moisture to the air, which should soothe the airways and help loosen any mucus that may be present.-C all 911 or proceed to nearest Emergency Department if you develop shortness of breath, chest pain, severe headache or other symptoms that concern you. Health Concerns Section Related Observation LastModified by Organization Detai ls LastModified Time None Recorded Concern Status LastModified by Organization Details LastModified Time None Recorded Advance Directives Directive None Recorded Payers Insurance Date Sequence Insurance Name Policy Number Policy Dodson Covered Member ID Dodson Member ID Guarantor Name 12/10/2022 1 [facility] [id number] 1 Jailyn Steinera [id number] Jailyn Steinera 12/10/2022 1 [facility] [id number] 1 Jailyn Torremeda [id number] Jailyn Torremeda Notes Date Note Type Note Provider Name and Address Organization Details Recorded Time 12/10/2022 text/html Sinus Complaints UCReported by PatientHPIFor location, patient reportspain behind the eyes __,sinus pain,facial pain,pain in the cheek, andsinus pressurebut reportsright side. For associated symptoms, patient reportsnasal discharge from __ nostrilsandheadache cheekbut reportsno sore throat. For quality, patient reportsworsening. For risk factors, patient reportsno current smoking or tobacco use. For aggravating factors, patient reportsnothing makes it worse. Ginny Ennis MD [address] [place], [address], [place] - [facility] 12/10/2022 16:27:29 OBGyn Episode No OBEpisode recorded.
--- OUTSIDE RECORDS SUMMARY | 2025-02-03 14:04 | XMS_ITS | Clinical Summary ---
Author Organization [address] [facility] Address [address] [place] [address] Phone Care Team Providers Care Plasma Cutting Machine Operator Name Role Phone Morteza Calix Primary Care Provider [phone] Allergies Active Allergy Reactions Criticality Noted Date Comments Hydrocodone-Acetaminop hen Headache 04/12/2019 Super bad migraines Penicillins Hives,GI intolerance,Unknown 01/26/2005 vomiting Other Reaction(s): vomiting,hives Medications aspirin-acetam inophen-caffei ne (EXCEDRIN MIGRAINE) 250-250-65 mg per tablet Take 1 tablet by mouth every 6 (six) hours if needed. Active FreeStyle Lite Meter monitoring kit USE DIRECTED ONCE 3 Active metFORMIN XR (GLUCOPHAGE-XR ) 500 mg 24 hr tablet Take 1 tablet (500 mg total) by mouth 1 (one) time each day. 90 tablet 3 5 Active blood sugar diagnostic (FreeStyle Lite Strips) test strip Use as instructed 100 each 3 5 Active amLODIPine (NORVASC) 10 mg tablet Take 1 tablet (10 mg total) by mouth 1 (one) time each day. 90 tablet 3 5 Active atorvastatin (LIPITOR) 20 mg tablet Take 1 tablet (20 mg total) by mouth 1 (one) time each day. 90 tablet 3 5 Active hydroCHLOROthi azide (HYDRODIURIL) 25 mg tablet Take 1 tablet (25 mg total) by mouth 1 (one) time each day. 90 tablet 3 5 Active losartan (COZAAR) 25 mg tablet Take 1 tablet (25 mg total) by mouth 1 (one) time each day. 90 tablet 3 5 Active metoprolol succinate (TOPROL-XL) 50 mg 24 hr tablet Take 1 tablet (50 mg total) by mouth 1 (one) time each day. 90 tablet 3 5 Active topiramate (TOPAMAX) 50 mg tablet Take 1 tablet (50 mg total) by mouth 2 (two) times a day. 180 tablet 3 5 Active FreeStyle Lancets 28 gauge lancets USE 1 LANCET DAILY 4 Active Nystop 100,000 unit/gram powder APPLY TO AREA OF RASH TWICE DAILY 4 Active gabapentin (NEURONTIN) 100 mg capsule Take 1 capsule (100 mg total) by mouth 3 (three) times a day. 270 capsule 1 5 Active rizatriptan (MAXALT) 10 mg tablet Take 1 Tablet by mouth as needed for Migraine. May repeat in 2 hours if needed 9 tablet 11 5 Active gabapentin (NEURONTIN) 800 mg tablet TAKE 1 TABLET BY MOUTH THREE TIMES A DAY 270 tablet 1 5 Active zolpidem (AMBIEN) 5 mg tablet TAKE 1 TABLET BY MOUTH AT BEDTIME NEEDED FOR SLEEP. MAX DAILY AMOUNT: 5 MG 28 tablet 5 Active tirzepatide (Mounjaro) 12.5 mg/0.5 mL injectionIndic ations:Over weight Inject 0.5 mL (12.5 mg total) under the skin every 7 (seven) days. 2 mL 3 5 04/30/19 26 Active tirzepatide (Mounjaro) 12.5 mg/0.5 mL injectionIndic ations:Over weight Inject 0.5 mL (12.5 mg total) under the skin every 7 (seven) days. 2 mL 3 5 01/09/20 25 Discontinu ed(Reorder ) oxyCODONE-acet aminophen (Percocet) 10-325 mg per tablet Take 1 tablet by mouth every 8 (eight) hours if needed for severe pain for up to 28 days. Max Daily Amount: 3 tablets 84 tablet 5 01/09/20 25 Active Problems Problem Noted Date Diagnosed Date Excessive and frequent menstruation 06/21/2024 Chronic bilateral low back pain with sciatica Lumbar radiculitis 10/03/2023 Metrorrhagia 08/31/2023 New onset type 2 diabetes me llitus ([facility] V24, CMS/[facility] V28) 02/28/2023 Anxiety 11/26/2021 Hyperlipidemia 06/23/2020 Overview [...] 1:45 PM EDT Office Visit Bariatric Surgery [address] [place] [address] Erasmo Woodard MD New onset type 2 diabetes mellitus ([facility] V24, [facility] V28) (Primary Dx); Over weight 01/04/2025 1:15 PM EDT Office Visit Adult Medicine [address] [phone] Cara Webb PA Primary hypertension (Primary Dx); Hyperlipidemia, unspecified hyperlipidemia type; Type 2 diabetes mellitus without complication, without long-term current use of insulin ([facility] V24, CMS/[facility] V28); Chronic migraine without aura without status migrainosus, not intractable; Chronic bilateral low back pain with bilateral sciatica; Primary insomnia 01/04/2025 Telephone Adult Medicine [address] [phone] Morteza Calix PA 12/20/2024 Telephone Adult Medicine [address] [phone] Cara Webb PA 11/13/2024 Telephone Adult Medicine [address] [phone] Kemi Negron MA from Last 3 Months [...] cyst-right thigh removal ENDOMETRIAL ABLATION 2012 PROCEDURE: IN ENDOMETRIAL ABLTJ THERMAL W/O HYSTEROSCOPIC GUID PARTIAL HYSTERECTOMY PROCEDURE: IN SUPRACERVICAL ABDL HYSTER W/WO RMVL TUBE OVARY Medical History Medical History Date Comments Morbid obesity (CMS/[facility] V24, [facility] V28) 007 DX:Morbid obesity (HCC) Chondromalacia of patella 11/09/2006 DX:Cho ndromalacia of patella Migraines DX:Migraines Hyperlipidemia Hypertension Family History Medical History Relation Name Comments Coronary artery disease Maternal Grandfather Heart attack Mother htn, Melanoma Mother's side 1 aunt in her 30's Coronary artery disease Mother's side 2 a unt, Coronary artery disease Other 1st cousin Coronary artery disease Paternal Grandfather [place] Other: htn Sister Breast cancer Neg Hx Colon cancer Neg Hx Ovarian cancer Neg Hx Relation Name Status Comments Father Alive htn Maternal Grandfather Mother Alive gerd, htn, [place], sleep apnea Mother's side 1 Mother's side [...] ed Within the last 3 months, ho rick many times did you visit the emergency [...] care for your loved ones. For example, child support officer or elderly care for an older adult? [...] 1:15 PM EST Office Visit Adult Medicine [facility] [address] [place], [place] [phone] Cara Webb PA [address] [place] 07/09/2025 2:15 PM EDT Office Visit Bariatric Surgery [address] [place] [address] Erasmo Woodard MD [address] [place] [address] Health Maintenance Due Date Last Done Comments [...] colon New onset type 2 diabetes mellitus ([facility]/HCC V24, [facility]/HCC V28) Hyperlipidemia, unspecified hyperlipidemia type Primary hypertension [...] LAB CHEMISTRY METHOD 10/04/2024 10:12 PM EDT [facility] Mean Bld Glu Estim. 111 mg/dL LAB CHEMISTRY METHOD 10/04/2024 10:12 PM EDT [facility] Blood Venous blood specimen / Unknown Venipuncture / Unknown 10/04/2024 4:28 PM EDT 10/04/2024 4:28 PM EDT us Cara Jon SLATER LAB BLOOD ORDERABLES Final Resul t [facility] [address] [place] [address], [place] [phone] * COLONOSCOPY Anesthesia - MAC; [facility] [[email or web address]] ENDOSCOPY (06/01/2024 8:56 AM EDT) Anatomical Region [...] screening purposes. Narrative 06/01/2024 8:56 AM EDT [facility] GI Patient Name: Jailyn Ann Procedure Date: [...] malignant neoplasm of colon CPT copyright 2020 [employer]. All rights reserved. The codes documented in this report are preliminary and upon skate maker review may be revised to meet current compliance requirements. MD Chema Ricci MD 06/01/2024 8:56:22 AM This report has been signed electronically.Chema Eason MD Number of Addenda: 0 Note Initiated On: 06/01/2024 8:28 AM Scope In: Scope Out: Endoscopy Department at [facility] - [address] [place] [phone] Procedure Note Chema Eason MD - 06/01/2024 [facility] GI Patient Name: Jailyn Ann Procedure Date: [...] for malignantneoplasm of colon CPT copyright 2020 [employer]. All rights reserved. The codes documented in this report are preliminary and upon skate maker reviewmay be revised to meet current compliance requirements. MD Chema Ricci MD 06/01/2024 8:56:22 AM This report has been signed electronically.Chema Eason MD Number of Addenda: 0 Note Initiated On: 06/01/2024 8:28 AM Scope In: Scope Out: Endoscopy Department at [facility] - [address] [place] [phone] IMPRESSION: - The entire examined colon is [...] colonoscopy in 10 years for screening purposes. Chema Eason MD GI~PROCEDURE ORDERABLES Final R esult * Lipid panel with reflex to direct LDL (05/14/2024 2:20 PM EST) Cholesterol 142 0 - 200 mg/dL LAB CHEMISTRY METHOD 05/14/2024 4:26 PM [facility] Triglycerides 138 0 - 150 mg/dL LAB CHEMISTRY METHOD 05/14/2024 4:26 PM [facility] HDL 47 >=40 mg/dL LAB CHEMISTRY METHOD 05/14/2024 4:26 PM EST [facility] LDL Calculated 67 0 - 100 mg/dL LAB CHEMISTRY METHOD 05/14/2024 4:26 PM [facility] VLDL Cholesterol Josiah 27.6 mg/dL LAB CHEMISTRY METHOD 05/14/2024 4:26 PM [facility] Non HDL Chol. (LDL+VLDL) 95 <145 mg/dL LAB CHEMISTRY METHOD 05/14/2024 4:26 PM [facility] Chol/HDL Ratio 3.0 0.0 - 4.4 LAB CHEMISTRY METHOD 05/14/2024 4:26 PM [facility] Blood Venous blood specimen / Unknown Venipuncture / Unknown 05/14/2024 2:20 PM EST 05/14/2024 2:20 PM EST Morteza SLATER LAB BLOOD ORDERABLES Agatha l Result [facility] [address] [place] [address], [place] [phone] * Microalbumin creatinine urine ratio (05/14/2024 2:20 PM EST) Creatinine, Urine 148.0 mg/dL LAB CHEMISTRY METHOD 05/14/2024 4:32 PM EST [facility] Microalb, Ur 9.1 0.0 - 29.0 mg/L LAB CHEMISTRY METHOD 05/14/2024 4:32 PM EST [facility] Microalb/Creat Ratio 6 <30 mg/g creat LAB CHEMISTRY METHOD 05/14/2024 4:32 PM EST [facility] Urine Urine specimen obtained by clean catch procedure / Unknown Non-blood Collection / Unknown 05/14/2024 2:20 PM EST 05/14/2024 2:20 PM EST Morteza SLATER LAB URINE ORDERABLES Agatha l Result Performing Organization Address City/[facility]/ZIP Co de Phone Number [facility] [address] [place] [address], [place] [phone] * Comprehensive metabolic panel (05/14/2024 2:20 PM EST) Sodium 142 133 - 145 mmol/L LAB CHEMISTRY METHOD 05/14/2024 4:26 PM EST [facility] Potassium 4.5 3.5 - 5.5 mmol/L LAB CHEMISTRY METHOD 05/14/2024 4:26 PM EST [facility] Chloride 109 96 - 110 mmol/L LAB CHEMISTRY METHOD 05/14/2024 4:26 PM EST [facility] CO2 30 21 - 32 mmol/L LAB CHEMISTRY METHOD 05/14/2024 4:26 PM EST [facility] Anion Gap 3 3 - [...] g/dL LAB CHEMISTRY METHOD 05/14/2024 4:26 PM [facility] Albumin 3.5 3.2 - 5.0 g/dL LAB CHEMISTRY METHOD 05/14/2024 4:26 PM [facility] Total Bilirubin 0.5 0.0 - 1.4 mg/dL LAB CHEMISTRY METHOD 05/14/2024 4:26 PM [facility] Blood Venous blood specimen / Unknown Venipuncture / Unknown 05/14/2024 2:20 PM EST 05/14/2024 2:20 PM EST Morteza SLATER LAB BLOOD ORDERABLES Agatha l Result [email or web address] [address] [place] [address], * Diabetes Foot Exam (08/31/2023) [facility] Diabetes: Annual Foot Exam abstracted Historical Provider HEALTH MAINTENANCE Final Result * HIV Screening (03/25/2017) [facility] HIV Screening abstracted [facility] Provider HEALTH MAINTENANCE Final Result * Hepatitis C Screening (03/25/2017) [facility] Hepatitis C Screening abstracted Historical Provider HEALTH MAINTENANCE Final Result * Cervical Cancer Screening: HPV (11/17/2011) [facility] Cervical Cancer Screening: HPV no interpretation , abstracted Historical Provider HEALTH MAINTENANCE Final Result from Last 3 Months or Most Recently Relevant to Health Maintenance Insurance [facility] [address] [place] [address] Care Teams Plasma Cutting Machine Operator Relationship Specialty Start Date End Date Morteza Calix PA [address] [place] [address] PCP - General Internal Medicine 03/26/24
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
--- OUTSIDE RECORDS SUMMARY | 2025-02-03 14:04 | XMS_ITS | Patient Health Record ---
Author Organization [employer] [facility] Address [address] [place] [address] Care Team Providers Care Clerical Production Worker Name Role Phone DORIS AREVALO M.D. Primary Care Provider Carla Law Unavailable [phone] Allergies Allergen (clinical drug ingredient) Drug/Non Drug [...] Risk Notes Problem Excessive and frequent menstruation (901206722) Excessive or frequent menstruation (626.2) Active confirmed Major Problem Metrorrhagia (12907498) Metrorrhagia (626.6) Active confirmed Major Problem Surgical follow-up (641461970) Surgery follow-up examination (V67.0) Active confirmed Diag Plan Of Treatment Pending Test Test Name Order Date COMPLETE URINALYSIS 10/17/2015 Insurance Providers Payer Name Payer Address Payer Phone Subscriber Number Group Number Insured Name Patient Relationship to Insured Coverage Start Date Coverage End Date [facility] [address] [place] [address] [id number] ARIES TYSON Self - patient is [...]
== END 2025-02-03 13:56 | disposition home or self-care (01) ==
LOC: HO.MRI 13:55
PROVIDERS: Visit Provider Nurse Practitioner Family
DX: G89.29 Other chronic pain (principal); M54.41 Lumbago with sciatica, right side; M54.42 Lumbago with sciatica, left side; M47.816 Spondylosis without myelopathy or radiculopathy, lumbar region; M51.369 Other intervertebral disc degeneration, lumbar region without mention of lumbar back pain or lower extremity pain
CPT/HCPCS: 72148

== ENCOUNTER → 2025-02-03 13:55 | Outpatient (BNV) | payer OTHER, SELFPAY | PROVIDERS: Visit Provider Radiology Diagnostic Radiology | DX: M51.369 Other intervertebral disc degeneration, lumbar region without mention of lumbar back pain or lower extremity pain (principal); M47.816 Spondylosis without myelopathy or radiculopathy, lumbar region; M48.061 Spinal stenosis, lumbar region without neurogenic claudication | CPT/HCPCS: 72148 ==

== ENCOUNTER 2025-02-12 09:27 | Outpatient (AMB) | payer OTHER, SELFPAY ==
--- NOTE | 2025-02-12 09:30 | A.OFFVIS_ITS ---
Vital Signs 3 02/12/25 09:34 Height 5 ft Weight 131 lb BMI 25.6 BP 103/49 L Blood Pressure Location Lt brachial Position Sitting Pulse 81 Pulse Source Pulse Oximeter Pulse Oximetry (%) 100 Oxygen Delivery Method Room Air Intake Visit Reasons: Discuss MRI Results Intake Note: Pain today 12/21 Commodity Manager Required: No Accompanied by: Self / Same As Patient Allergies acetaminophen (From Vicodin) Allergy (Unknown, Verified 02/12/25 09:34) Migraine hydrocodone (From Vicodin) Allergy (Unknown, Verified 02/12/25 09:34) Migraine Penicillins Allergy (Unknown, Verified 02/12/25 09:34) Vomiting HPI Comments Details: The patient is a 49 year old female presenting for a follow-up visit to discuss lumbar spine MRI results and management of chronic low back pain. The patient has a history of chronic back pain with bilateral posterior radiculopathy and has been previously treated with physical therapy and an L5-S1 epidural steroid injection at another pain clinic, which provided minimal relief. A recommendation for back surgery was made, but the patient remains reluctant to proceed. A recent lumbar spine MRI showed findings progressed since 2022 MRI, revealing multilevel degenerative disc and facet disease, ligamentum flavum hypertrophy, and multilevel neuroforaminal stenosis, which is most severe at L5-S1 with associated intraforaminal nerve root compression. The patient has been aware of this severe compression for approximately two years. A surgical consultation in 2022 involved a discussion about fusion surgery with hardware and the risks of non-operative management, including the potential loss of the ability to walk, but the patient is not ready for surgery. The patient is not currently taking any pain medication and has been without it for two months. The patient reports a high tolerance to pain medication. There is a reported allergy to Vicodin, which causes migraines. The patient has passed a behavioral evaluation and has a clearance letter from her Psychiatrist for a neuromodulation procedure. We discussed ITDD and SCS trial at prior visits and patient is interested to proceed with ITDD trial. Denies any recent cough, cold, infection, fever or any significant changes in medical history since last office visit. PRIOR: The patient is a 49-year-old female presenting with chronic low back pain. The pain has been persistent and radiates to both legs posteriorly, accompanied by numbness and tingling sensations. The patient reports that all movements, including walking, sitting, prolonged driving, bending, and lifting, exacerbate the pain. The patient has a history of receiving treatment at [facility] and has undergone physical therapy in [place] a year ago without relief. She has also received L5-S1 epidural steroid injections at [facility], which provided minimal relief. The patient has been informed that surgery was recommended, but she is reluctant to pursue this option. An MRI conducted in October 2022 revealed degenerative changes in the lumbar spine, most pronounced at L5-S1, with a diffuse disc bulge and severe bilateral neuroforaminal narrowing. The MRI also showed facet arthropathy at the same level, but no significant canal stenosis. The patient reports worsening pain since 2022 and experiences weakness in her legs. The patient has a history of anxiety, for which she is seeing a Psychiatrist. She also suffers from migraines and is currently taking Mounjaro for diabetes and weight loss. - Onset: Chronic, persistent pain - Quality: Constant aching, throbbing, shooting, numbness, tingling, sharp, heavy, sore, and stabbing pain - Location: Lower back, radiating to both legs and buttocks - Exacerbating factors: Walking, sitting, prolonged driving, bending, lifting - Relieving factors: Percocet provides relief, but difficult to obtain - Interference: Affects all activities, including work and sleep - Affect: Pain significantly impacts mood and psychological wellbeing, contributing to anxiety. - Analgesia: Percocet provides relief, but is difficult to obtain; patient has tried muscle relaxants and gabapentin without success. - Adverse Effects: No specific adverse effects from pain medications were discussed. - Activities of Daily Living: Pain interferes with daily activities, including work and sleep. - Aberrant Drug Related Behaviors: No aberrant behaviors were discussed. Oswestry Low Back Pain Disability Score=38 [facility] Medical History Palpitation Vitamin D deficiency Lumbar radiculitis Hypertension Excessive and frequent menstruation Chronic headache Chondromalacia of patella Chronic insomnia Chronic migraine without aura without status migrainosus, not intractable Diabetes type 2, controlled Hyperlipidemia Anxiety Surgical History H/O tubal ligation Hx of tonsillectomy History of partial hysterectomy Hx of laparoscopic gastric banding History of ear surgery History of endometrial ablation Social History Alcohol intake: current Patient Tobacco Use Status: Never used Tobacco Review of Systems Const Details: - Musculoskeletal: Reports chronic low back pain with radiation to the buttocks. - Neurological: Reports bilateral posterior radiculopathy and numbness, including in the buttocks when sitting. - Genitourinary: Denies incontinence. All systems reviewed & are unremarkable except as noted in HPI and below Physical Exam Vital Signs: Last Vital Signs Pulse 81 02/12/25 09:34 BP 103/49 L 02/12/25 09:34 Pulse Ox 100 02/12/25 09:34 Oxygen Delivery Method Room Air 02/12/25 09:34 BMI result Body Mass Index 25.6 General: Appears afebrile. Alert and oriented. Mood and affect appropriate. Follows and participates in conversation appropriately. Respiratory effort is unlabored. No cough. Able to transition from sit to stand unassisted. Ambulates with bilaterally normal heel strike and toe off, reports RLE and back pain increase with heel/toe standing. General: Yes no CVA tenderness Back/Spine/Pelvis Other: Limited lumbar ROM due to pain. Lumbar flexion and extension reproduces moderate to severe pain. Normal gait, no limping. Demonstrates 5/5 strength of quadriceps bilaterally as well as flexion/dorsiflexion of bilateral feet against resistance. 2+ pedal pulses bilaterally. Straight leg rise with dorsiflexion positive bilaterally, R>L. +2 patellar and achilles reflexes bilaterally. Facet loading test positive bilaterally. Maggy sign, Jatin?s and Stinchfield tests are negative bilaterally. No groin pain with I/E hip rotations. Valsalva maneuver is positive. Back: no CVA tenderness Cervical Spine: cervical ROM normal, cervical muscular tenderness, pain with cervical ROM and No Cervical spine tenderness Thoracic/Lumbar Spine: thoracic and lumbar spine normal to inspection, No Thoracic/lumbar spine scar(s), Lasegue's sign positive bilateral and diffuse, pain with thoraco-lumbar ROM, paraspinal muscle tenderness, thoraco-lumbar ROM limited, No thoracic spinal tenderness and lumbar spinal tenderness (L4-S1) Sacroiliac joints: bilaterally tender to palpation Extrem General: Yes capillary refill normal, Yes no clubbing, cyanosis or edema and Yes no calf tenderness Psych Appearance: grossly normal and well kempt Mental Status: mental status grossly normal Speech and movement: Normal speech and movement present and Clear speech present Affect: normal affect Attitude: cooperative Thought process: Normal thought process present Thought content: Normal thought content present, suicidality (none), no hallucinations and No Depressive thoughts present Insight: Good insight present (Psych) Results Reviewed Results Reviewed: MR lumbar spine without gadolinium 02/03/25 Comparison: None Findings: No plain films are available for comparison. Thus, for numbering purposes, 5 lumbar type vertebral bodies will be presumed. This should be confirmed with plain films prior to any lumbar spinal intervention. 2 mm of retrolisthesis of L2 on L3 and L3 on L4. 5 mm of retrolisthesis of L5 on S1. No acute fracture or pathologic bone lesion. Moderate reactive signal within the endplates adjacent to the L5-S1 intervertebral disc. Mild reactive signal within the remaining lumbar and lower thoracic endplates. Cauda equina and conus medullaris within normal limits. Paraspinous musculature intact. No paraspinous masses. L1-L2: No significant canal nor foraminal stenosis. L2-L3:Mild diffuse disc bulge. Mild facet and ligamentum flavum hypertrophy. Mild epidural lipomatosis. Mild canal stenosis. Mild bilateral foraminal stenosis. L3-L4:Mild disc desiccation and diffuse disc bulge. Mild facet and ligamentum flavum hypertrophy. Mild canal stenosis. Mild bilateral foraminal stenosis. L4-L5: Mild disc desiccation and diffuse disc bulge. Mild facet and ligamentum flavum hypertrophy. Mild canal stenosis. Moderate bilateral foraminal stenosis. L5-S1:Severe disc height loss and desiccation. Mild diffuse disc bulge. Mild bilateral facet hypertrophy. Mild canal stenosis. Moderate to severe right and moderate left foraminal stenosis. Mild right L5 nerve root compression. IMPRESSION: 1. Multilevel degenerative disc and facet disease, as well as ligamentum flavum hypertrophy. 2. Mild multilevel canal stenoses. 3. Multilevel foraminal stenoses, worst at L5-S1 where there is associated intraforaminal nerve root compression. Correlation with clinical symptoms is recommended to assess relevance of this finding. 4. Plain film correlation is recommended for numbering purposes prior to any lumbar spinal intervention. Assessment & Plan Assessment & Plan (1) Lumbar degenerative disc disease: Code(s): M51.36 - Other intervertebral disc degeneration, lumbar region Category: Medical (2) Chronic low back pain with bilateral sciatica: Code(s): M54.41 - Lumbago with sciatica, right side; M54.42 - Lumbago with sciatica, left side; G89.29 - Other chronic pain Category: Medical (3) Chronic pain syndrome: Code(s): G89.4 - Chronic pain syndrome Category: Medical (4) Lumbar spondylosis: Code(s): M47.816 - Spondylosis without myelopathy or radiculopathy, lumbar region Category: Medical Plan Given the severity of the lumbar stenosis, particularly at L5-S1, and a history of minimal relief from a prior epidural steroid injection, another injection is not recommended. Although the patient is reluctant to undergo surgery, the patient is aware of the risks, and has decided to first pursue less invasive options. The plan is to proceed with an intrathecal pain pump trial as she recently passed behavioral evaluation. Schedule ITDD trial with Dilaudid with local and fluoroscopy. Expectations, risks and benefits were reviewed. Patient is aware she will be contacted to schedule this procedure. If the trial is successful, insurance approval will be sought for implantation of a permanent intrathecal pain pump. An active order for a lumbar spine X-ray exists, and the patient was instructed to complete this imaging. All questions and concerns have been answered and patient agreed with the treatment plan. Follow up after ITDD trial and sooner as needed. Patient was informed and verbally consented to the use of an ambient scribe for clinic note documentation during this visit. Coding Level of Care Code Est Pt Level 4 (33487) Complex visit Add On G2211 Diagnoses Lumbar degenerative disc disease M51.36 Chronic low back pain with bilateral sciatica M54.41; M54.42; G89.29 Chronic pain syndrome G89.4 Lumbar spondylosis M47.816
[2025-02-12 09:34] VITALS: BP 103/49; PULSE 81; O2SAT 100; BMI 25.6
--- OUTSIDE RECORDS SUMMARY | 2025-02-12 10:11 | XMS_ITS | Data Portability ---
Author Organization [facility] [id number] Address [address] [place] [address] Assessment No assessment recorded. Plan of Treatment Reminders Order Date Submit Date Provider Last Modified By Organization Details Last Modified Time Details Appointments None recorded. Lab None recorded. Referral None recorded. Procedures None recorded. Surgeries None recorded. Imaging None recorded. Medication Orders azithromyci n 250 mg tablet 2022 023 [facility] [id number], [address], [place], [phone], 3 16:26:09 ibuprofen 800 mg tablet 2022 023 [facility] [id number], [address], [place], [phone], 16:26:08 Patient TargetsNo targets recorded. Patient Instructions Encounter Date Encounter Id Patient Instructions Last Modified By Organization Details Last Modified Time 12/10/2022 [id number] Acute Sinusitis: Care Instructions Not available 12/10/2022 16:26:00 Acute Sinusitis: Care Instructions Not available 12/10/2022 16:26:00 Reason for Referral None Reported. Problems Name Problem SNOMED Code Status Onset Date Resolution Date Notes Provider Name and Address Organization Details Recorded Time Migraine 53612539 Active 2022 [facility] 3 16:10:00 Hypertensive disorder 32075420 Active 2022 [facility] 3 16:10:15 Chronic back pain 332035309 Active 2022 KATHY sepulveda, [facility] - [facility] [...] Name and Address Organization Details Recorded Time 914216 Product containin g penicilli n (product) medicatio n hives vomiting Not available mild low 12/10/2022 [id number] [id number] SNOMED KATHY [facility]ulveda, [place] - [facility] [...] Updated DateTime 3 152.4 cm 38.3 kg/m2 73814.1 g 10 100 % 87 /min 98.5 [...] ICD10 Code Diagnosis IMO Codes Diagnosis Note [id number] [address] [address] [place] [address] 11/30/2019 15:50:32 11/30/2019 16:58:06 [id number] [place] [id number] [address] [address] [place] [address] 12/10/2022 15:37:25 12/10/2022 16:27:19 Acute sinusitis [id number] J01.90 - Use the medication s prescribed [...] Dodson Member ID Guarantor Name 12/10/2022 1 [facility] [id number] 1 Jailyn Steinera [id number] Jailyn Steinera 12/10/2022 1 [facility] [id number] 1 Jailyn Torremeda [id number] Jailyn Torremeda Notes Date Note Type Note [...] Ginny Ennis MD [address] [place], [address], [place] - [facility] 12/10/2022 16:27:29 OBGyn Episode No OBEpisode recorded.
--- OUTSIDE RECORDS SUMMARY | 2025-02-12 10:11 | XMS_ITS | Clinical Summary ---
Author Organization [facility] Address [address] [place] [address] Phone Care Team Providers Care Director Treasurer Name Role Phone Morteza Calix Primary Care Provider [phone] Allergies Active Allergy Reactions Criticality Noted Date Comments Hydrocodone-Acetaminop hen Headache 04/12/2019 Super bad migraines Penicillins Hives,GI intolerance,Unknown 01/26/2005 vomiting Other Reaction(s): vomiting,hives Medications aspirin-acetami nophen-caffeine (EXCEDRIN MIGRAINE) 250-250-65 mg per tablet Take 1 tablet by mouth every 6 (six) hours if needed. Active FreeStyle Lite Meter monitoring kit USE DIRECTED ONCE 3 Active metFORMIN XR (GLUCOPHAGE-XR) 500 mg 24 hr tablet Take 1 [...] each day. 90 tablet 3 5 Active hydroCHLOROthia zide (HYDRODIURIL) 25 mg tablet Take 1 tablet [...] 5 Active tirzepatide (Mounjaro) 12.5 mg/0.5 mL injectionIndica tions:Over weight Inject 0.5 mL (12.5 mg total) under the skin every 7 (seven) days. 2 mL 3 5 04/30/19 26 Active Active Problems Problem Noted Date Diagnosed Date [...] 1:45 PM EDT Office Visit Bariatric [place] [address] [facility] [address] [place] [id number] Erasmo Woodard MD New onset type 2 diabetes mellitus (CMS/HCC V24, CMS/HCC V28) (Primary Dx); Over weight 01/04/2025 1:15 PM EDT Office Visit Adult Medicine [address] [phone] Cara Webb PA Primary hypertension (Primary Dx); Hyperlipidemia, unspecified hyperlipidemia type; Type 2 diabetes mellitus without complication, without long-term current use of insulin (CMS/HCC V24, CMS/HCC V28); Chronic migraine without aura without status migrainosus, not intractable; Chronic bilateral low back pain with bilateral sciatica; Primary insomnia 01/04/2025 Telephone Adult Medicine [address] [phone] Morteza Calix PA 12/20/2024 Telephone Adult Medicine [address] [phone] Cara Webb PA 11/13/2024 Telephone Adult Medicine [address] [phone] Kemi Negron MA from Last 3 Months [...] cyst-right thigh removal ENDOMETRIAL ABLATION 2012 PROCEDURE: MS ENDOMETRIAL ABLTJ THERMAL W/O HYSTEROSCOPIC GUID PARTIAL HYSTERECTOMY PROCEDURE: MS SUPRACERVICAL ABDL HYSTER W/WO RMVL TUBE OVARY Medical History Medical History Date Comments Morbid obesity ([facility] V24, CMS/[facility] V28) 007 DX:Morbid obesity ([facility]) Chondromalacia of patella 11/09/2006 DX:Cho ndromalacia of [...] care for your loved ones. For example, childhood teacher or elderly care for an older adult? [...] 1:15 PM EST Office Visit Adult Medicine [facility] [address] [place], [place] [phone] Cara Webb PA [address] [place], [place] 07/09/2025 2:15 PM EDT Office Visit Bariatric Surgery [address] [place] [address] Erasmo Woodard MD [address] [place] [address] Health Maintenance Due Date Last Done Comments Breast Cancer Screening 1977 Hepatitis B Vaccines (1 of 3 - 19+ 3-dose series) 1996 Cervical Cancer Screening: Pap Smear 11/16/2014 11/17/2011 COVID-19 Vaccine ( season) 2024 01/19/2023, [...] onset type 2 diabetes mellitus (CMS/HCC V24, [facility] V28) Hyperlipidemia, unspecified hyperlipidemia type Primary hypertension Obesity (BMI 35.0-39.9 without comorbidity) Vitamin D deficiency Anxiety DIABETES FOOT EXAM Routine 08/31/2023 HEPATITIS C SCREENING Routine 03/25/2017 HIV SCREENING Routine 03/25/2017 PAP SMEAR Routine 11/17/2011 from Last 3 Months or Most Recently Relevant to Health Maintenance Results * Hemoglobin A1c (10/04/2024 4:28 PM EDT) Hemoglobin A1C 5.5 <6.5 % LAB CHEMISTRY METHOD 10/04/2024 10:12 PM EDT [facility] Mean Bld Glu Estim. 111 mg/dL LAB CHEMISTRY METHOD 10/04/2024 10:12 PM EDT [facility] Blood Venous blood specimen / Unknown Venipuncture / Unknown 10/04/2024 4:28 PM EDT 10/04/2024 4:28 PM EDT us Cara Jon SLATER LAB BLOOD ORDERABLES Final Resul t [facility] [address] [place] [address], * COLONOSCOPY Anesthesia - [facility]; [facility] ENDOSCOPY (06/01/2024 8:56 AM EDT) Anatomical [...] screening purposes. Narrative 06/01/2024 8:56 AM EDT [facility] GI Patient Name: Jailyn Ann Procedure [...] malignant neoplasm of colon CPT copyright 2020 [employer]. All rights reserved. The codes documented in this report are preliminary and upon senior functional analyst review may be revised to meet current compliance requirements. MD Chema Ricci MD 06/01/2024 8:56:22 AM This report has been signed electronically.Chema Eason MD Number of Addenda: 0 Note Initiated On: 06/01/2024 8:28 AM Scope In: Scope Out: Endoscopy Department at [facility] - [address] [place] [phone] Procedure Note Chema Eason MD - 06/01/2024 [facility] GI Patient Name: Jailyn Ann Procedure [...] for malignantneoplasm of colon CPT copyright 2020 [employer]. All rights reserved. The codes documented in this report are preliminary and upon senior functional analyst reviewmay be revised to meet current compliance requirements. MD Chema Ricci MD 06/01/2024 8:56:22 AM This report has been signed electronically.Chema Eason MD Number of Addenda: 0 Note Initiated On: 06/01/2024 8:28 AM Scope In: Scope Out: Endoscopy Department at [facility] - [address] [place] [phone] IMPRESSION: - The entire examined colon is [...] LAB CHEMISTRY METHOD 05/14/2024 4:26 PM EST [facility] Triglycerides 138 0 - 150 mg/dL LAB CHEMISTRY METHOD 05/14/2024 4:26 PM EST [facility] HDL 47 >=40 mg/dL LAB CHEMISTRY METHOD 05/14/2024 4:26 PM EST [facility] LDL Calculated 67 0 - 100 mg/dL LAB CHEMISTRY METHOD 05/14/2024 4:26 PM EST [facility] VLDL Cholesterol Josiah 27.6 mg/dL LAB CHEMISTRY METHOD 05/14/2024 4:26 PM EST [facility] Non HDL Chol. (LDL+VLDL) 95 <145 mg/dL LAB CHEMISTRY METHOD 05/14/2024 4:26 PM EST [facility] Chol/HDL Ratio 3.0 0.0 - 4.4 LAB CHEMISTRY METHOD 05/14/2024 4:26 PM EST [facility] Blood Venous blood specimen / Unknown Venipuncture / Unknown 05/14/2024 2:20 PM EST 05/14/2024 2:20 PM EST Morteza SLATER LAB BLOOD ORDERABLES Agatha l Result [facility] [address] [place] [address], * Microalbumin creatinine urine ratio (05/14/2024 2:20 PM EST) Creatinine, Urine 148.0 mg/dL LAB CHEMISTRY METHOD 05/14/2024 4:32 PM EST [facility] Microalb, Ur 9.1 0.0 - 29.0 mg/L LAB CHEMISTRY METHOD 05/14/2024 4:32 PM [facility] Microalb/Creat Ratio 6 <30 mg/g creat LAB CHEMISTRY METHOD 05/14/2024 4:32 PM [facility] Urine Urine specimen obtained by clean catch procedure / Unknown Non-blood Collection / Unknown 05/14/2024 2:20 PM EST 05/14/2024 2:20 PM EST us Morteza SLATER LAB URINE ORDERABLES Agatha l Result [facility] [address] [place] [address], * Comprehensive metabolic panel (05/14/2024 2:20 PM EST) Sodium 142 133 - 145 mmol/L LAB CHEMISTRY METHOD 05/14/2024 4:26 PM [facility] Potassium 4.5 3.5 - 5.5 mmol/L LAB CHEMISTRY METHOD 05/14/2024 4:26 PM [facility] Chloride 109 96 - 110 mmol/L LAB CHEMISTRY METHOD 05/14/2024 4:26 PM [facility] CO2 30 21 - 32 mmol/L LAB CHEMISTRY METHOD 05/14/2024 4:26 PM [facility] Anion Gap 3 3 - 11 LAB CHEMISTRY METHOD 05/14/2024 4:26 PM [facility] Glucose 73 70 - 100 mg/dL LAB CHEMISTRY METHOD 05/14/2024 4:26 PM [facility] BUN 20 5 - 25 mg/dL LAB CHEMISTRY METHOD 05/14/2024 4:26 PM [facility] Creatinine 0.83 0.50 - 1.10 mg/dL LAB CHEMISTRY METHOD 05/14/2024 4:26 PM [facility] eGFR 88 >=60 mL/min/1. 73m2 LAB CHEMISTRY METHOD 05/14/2024 4:26 PM [facility] Comment:Calculation based on the Chronic Kidney Disease Epidemiology Collaboration (CKD-EPI) equation refit without adjustment for race. BUN/Creatinine Ratio 24.1 LAB CHEMISTRY METHOD 05/14/2024 4:26 PM [facility] Calcium 9.3 8.5 - 10.5 mg/dL LAB CHEMISTRY METHOD 05/14/2024 4:26 PM [facility] AST (SGOT) 21 10 - 42 unit/L LAB CHEMISTRY METHOD 05/14/2024 4:26 PM [facility] ALT (SGPT) 29 10 - 60 unit/L LAB CHEMISTRY METHOD 05/14/2024 4:26 PM [facility] Alkaline Phosphatase 45 42 - 121 unit/L LAB CHEMISTRY METHOD 05/14/2024 4:26 PM [facility] Total Protein 6.4 6.0 - 8.0 g/dL LAB CHEMISTRY METHOD 05/14/2024 4:26 PM [facility] Albumin 3.5 3.2 - 5.0 g/dL LAB CHEMISTRY METHOD 05/14/2024 4:26 PM [facility] Total Bilirubin 0.5 0.0 - 1.4 mg/dL LAB CHEMISTRY METHOD 05/14/2024 4:26 PM [facility] Blood Venous blood specimen / Unknown Venipuncture / Unknown 05/14/2024 2:20 PM EST 05/14/2024 2:20 PM EST us Morteza SLATER LAB BLOOD ORDERABLES Agatha arreguin Result [facility] [address] [place] [address], * Diabetes Foot Exam (08/31/2023) Pathologist [facility] Diabetes: Annual Foot Exam abstracted Historical Provider HEALTH MAINTENANCE Final Result * HIV Screening (03/25/2017) Pathologist [facility] HIV Screening abstracted Historical Provider HEALTH MAINTENANCE Final Result * Hepatitis C Screening (03/25/2017) Pathologist [facility] Hepatitis C Screening abstracted [facility] Provider HEALTH MAINTENANCE Final Result * Pap Smear (11/17/2011) Pap smear no interpretation , abstracted [facility] Provider HEALTH MAINTENANCE Final Result from Last 3 Months or Most Recently Relevant to Health Maintenance Insurance [facility] Care Teams Director Treasurer Relationship Specialty Start Date End Date Morteza Calix PA [address] [place] [id number] PCP - General Internal Medicine 03/26/24
== END 2025-02-12 10:08 | disposition home or self-care (01) ==
LOC: HO.PMC 09:28
PROVIDERS: Visit Provider Nurse Practitioner Family
DX: M51.369 Other intervertebral disc degeneration, lumbar region without mention of lumbar back pain or lower extremity pain (principal); M54.41 Lumbago with sciatica, right side; M54.42 Lumbago with sciatica, left side; G89.29 Other chronic pain; G89.4 Chronic pain syndrome; M47.816 Spondylosis without myelopathy or radiculopathy, lumbar region
CPT/HCPCS: 99214; G2211

== ENCOUNTER 2025-02-18 07:55 | Outpatient (REF) | payer OTHER, SELFPAY ==
--- NOTE | ~2025-02-18 | XR_ITS ---
EXAMINATION: XR LUMBOSACRAL SPINE CLINICAL INFORMATION: M51.36 - Other intervertebral disc degeneration, lumbar region COMPARISON: Correlated to MRI dated February 03, 2025. TECHNIQUE: AP, oblique and lateral views. FINDINGS: Last rib-bearing vertebra labeled T12. Multilevel marginal osteophyte formation and endplate sclerosis. Decreased intervertebral disc height, subchondral cyst formation and endplate sclerosis at L5-S1. Grade 1 retrolisthesis L5-S1. 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 No lytic or blastic lesions. XR/XR lumbar spine 4V min IMPRESSION: Multilevel thoracolumbar spondylosis pronounced at L5-S1 resulting in grade 1 retrolisthesis. Electronically signed by: Melvin Rodriguez MD 02/18/2025 08:30 AM [facility] [place]
--- OUTSIDE RECORDS SUMMARY | 2025-02-18 08:02 | XMS_ITS | Patient Health Record ---
Author Organization [employer] [facility] Address [address] [place] [address] Care Team Providers Care Upholstery Department Supervisor Name Role Phone DORIS AREVALO M.D. Primary Care Provider Carla Law Unavailable [phone] Allergies Allergen (clinical drug ingredient) Drug/Non Drug [...] Risk Notes Problem Excessive and frequent menstruation (587980519) Excessive or frequent menstruation (626.2) Active confirmed Major Problem Metrorrhagia (29290276) Metrorrhagia (626.6) Active confirmed Major Problem Surgical follow-up (350239508) Surgery follow-up examination (V67.0) Active confirmed Diag Plan Of Treatment Pending Test Test Name Order Date COMPLETE URINALYSIS 10/17/2015 Insurance Providers Payer Name Payer Address Payer Phone Subscriber Number Group Number Insured Name Patient Relationship to Insured Coverage Start Date Coverage End Date [facility] [address] [place] [address] [id number] ARIES TYSON Self - patient is [...]
== END 2025-02-18 07:56 | disposition home or self-care (01) ==
LOC: HO.XRAY 07:55
PROVIDERS: PCP Physician Assistant Medical; Visit Provider Nurse Practitioner Family
DX: M51.370 Other intervertebral disc degeneration, lumbosacral region with discogenic back pain only (principal); M47.817 Spondylosis without myelopathy or radiculopathy, lumbosacral region; G89.29 Other chronic pain
CPT/HCPCS: 72110

== ENCOUNTER → 2025-02-18 07:59 | Outpatient (BNV) | payer OTHER, SELFPAY | PROVIDERS: PCP Physician Assistant Medical; Visit Provider Radiology Diagnostic Radiology | DX: M51.369 Other intervertebral disc degeneration, lumbar region without mention of lumbar back pain or lower extremity pain (principal); M47.815 Spondylosis without myelopathy or radiculopathy, thoracolumbar region | CPT/HCPCS: 72110 ==